=== PATIENT | female | born 1990 ===

== ENCOUNTER → 2021-08-24 | Outpatient (CLI) | payer OTHER | LOC: COL.RAD 11:22 | DX: E05.90 Thyrotoxicosis, unspecified without thyrotoxic crisis or storm (principal) | CPT/HCPCS: A9516 ==

== ENCOUNTER → 2022-01-10 | Outpatient (CLI) | payer OTHER | LOC: COL.RAD 13:16 | DX: N85.00 Endometrial hyperplasia, unspecified (principal) ==